=== PATIENT | female | born 1975 | race Caucasian/White ===

== ENCOUNTER → 2020-04-03 14:09 | Outpatient (CLI) | payer OTHER, SELFPAY ==
--- NOTE | ~2020-04-03 | MM_ITS ---
EXAMINATION: MM screening [facility] BI w elvira HISTORY: Screening mammogram TECHNIQUE: Craniocaudal and mediolateral oblique 3-D tomosynthesis images were obtained and synthetic 2-D images were generated. CAD analysis was submitted and interpreted. COMPARISON: 02/17/2017, 02/03/2017, 09/30/2015 BREAST PARENCHYMAL COMPOSITION: There are scattered areas of fibroglandular density. FINDINGS: There is no evidence of suspicious mass, calcification, or architectural distortion to sugg est malignancy in either breast. There has been no suspicious interval change. IMPRESSION: 1. No mammographic evidence of malignancy. 2. Recommend routine screening mammography in one year. BI-RADS Category 1: Negative Reviewed, dictated and finalized at location A. O COUNTER MOLDER
== END ==
PROVIDERS: Visit Provider Obstetrics & Gynecology
DX: Z12.31 Encounter for screening mammogram for malignant neoplasm of breast (principal)
CPT/HCPCS: 77063; 77067

== ENCOUNTER 2020-12-13 17:18 | Emergency (ER) | payer BC, OTHER, SELFPAY ==
[2020-12-13 17:53] VITALS: BP 135/88; PULSE 75; RESP 16; TEMP 36.7; O2SAT 97
--- NOTE | 2020-12-13 17:59 | ED.FEMALEGU ---
HPI - Female Genitourinary General Chief complaint: Urogenital-Female Stated complaint: UTI Source: patient and RN notes reviewed Limitations: no limitations History of Present Illness HPI Narrative: The overweight patient, on several meds for asthma, presents with urinary symptoms. Patient states she has about a week long history of worsening urinary frequency, urgency which she had first thought was associated with recent bladder prolapse and pessary treatment. Symptoms are mild, most most noticeable with micturition, associate with mild left low back pain; no fever, vomiting/diarrhea, hematuria, vaginal bleeding-as she recently completed her menses cycle. Related Data Allergies Allergy/AdvReac Type Severity Reaction Status Date / Time No Known Allergies Allergy Verified 12/13/20 17:45 Review of Systems Review of Systems: General/Constitutional: No weight loss,fever Eyes: N0: Redness,discharge Ears/Nose/Throat: No: Epistaxis,ear discharge Respiratory: Denies: Hemoptysis Gastrointestinal: No Vomiting, Bleeding-rectal Skin: No Lumps, eruption Neurologic: No Focal Weakness,Sz Hematologic: Denies: Petechiae/Purpura Psychiatric: No: Suicida ideationl All Other Systems: Reviewed and Negative [facility], [facility] Past Medical History Medical History x2 Allergic asthma Anemia Eosinophilic esophagitis Kidney stones Migraines Missed x2 Vaginal delivery x 3 Surgical History Surgical History History of endoscopy History of laparoscopy Family History Family History Father Hypertension Mother Hypertension Social History Social History Social History: Smoking status: Former smoker Tobacco type: cigarettes Second hand tobacco smoke exposure: No Smoking end date: 04/18/02 Alcohol intake: current Drinks per week: 1 Substance use: never Substance use type: does not use Gender identity (if verbalized by the patient): Female Sexual Orientation (if Verbalized by the Patient): Straight or Heterosexual Comments At time of signature, agree with nursing past medical, surgical, social and family history. There is no relevant family history pertinent to the presenting complaint Exam Narrative: General Appearance: Well appearing, , Conjunctiva clear Mouth/Throat: Normal appearing, Normal lips,: Supple Respiratory: Airway patent, No respiratory distress Abdomen: Soft, Non-tender, Musculoskeletal: Full ROM Skin: Warm, Dry Neurological: A&O x3, Normal affect Course Vital Signs Vital signs: Vital Signs Temperature 98.1 F 12/13/20 17:53 Pulse Rate 75 12/13/20 17:53 Respiratory Rate 16 12/13/20 17:53 Blood Pressure 135/88 12/13/20 17:53 Pulse Oximetry 97 12/13/20 17:53 Temperature 98.1 F 12/13/20 17:53 Pulse Rate 75 12/13/20 17:53 Respiratory Rate 16 12/13/20 17:53 Blood Pressure 135/88 12/13/20 17:53 Pulse Oximetry 97 12/13/20 17:53 MDM - Female Genitourinary Lab Data Labs: Urine Glucose Negative Reference Range: Negative Urine Bilirubin Negative Reference Range: Negative Urine Ketone Trace Reference Range: Negative Urine Specific [place] 1.020 Reference Range:1.001-1.035 Urine Blood 2+ Reference Range: Negative * * Urine pH 6.5
== END 2020-12-13 18:18 | disposition home or self-care (01) ==
PROVIDERS: Emergency Provider Emergency Medicine; PCP Family Medicine
DX: N30.00 Acute cystitis without hematuria (principal); Z87.891 Personal history of nicotine dependence
CPT/HCPCS: 81003; 87077; 87086; 87088; 87186; 99213; G0463

== ENCOUNTER 2021-08-31 07:52 | Outpatient (CLI) | payer BC, SELFPAY ==
[2021-08-31 08:34] LABS: Basophils Absolute Auto 0.2 K/mm3 (0.0-0.1); Basophils Percent Auto 1.4 % (0.2-1.2); Eosinophils Absolute Auto 0.8 K/mm3 (0-0.3); Hematocrit 38.9 % (37.0-47.0); Hemoglobin 12.9 g/dL (12.0-15.0); Immature Granulocyte Absolute 0.05 K/mm3 (0.00-0.031); Immature Granulocyte Percent A 0.4 % (0-0.5); Lymphocytes Absolute Auto 4.13 K/mm3 (0.9-3.2); Lymphocytes Percent Auto 36.6 % (18.3-44.2); Mean Corpuscular HGB Conc 33.2 g/dl (32-36); Mean Corpuscular Hemoglobin 32.7 pg (26-34); Mean Corpuscular Volume 98.5 fl (80-100); Mean Platelet Volume 10.1 fl (7.4-10.4); Monocytes Absolute Auto 0.6 K/mm3 (0.1-0.6); Monocytes Percent Auto 5.5 % (2.6-8.5); Neutrophils Absolute Auto 5.5 K/mm3 (1.3-6.7); Neutrophils Percent Auto 49.1 % (45.5-73.1); Platelet Count Result 323 k/mm3 (150-375); Red Blood Count 3.95 M/mm3 (4.2-5.4); Red Cell Distribution Width 12.6 % (11.5-14.5); White Blood Count 11.3 K/mm3 (4.5-10.0)
[2021-08-31 08:36] LABS: Alanine Aminotransferase 14 U/L (6-35); Albumin Level 4.3 g/dL (3.5-5.1); Alkaline Phosphatase 88 U/L (38-126); Anion Gap 4 mmol/L (8-16); Aspartate Amino Transferase 23 U/L (14-36); Bilirubin,Total 0.4 mg/dL (0.2-1.3); Blood Urea Nitrogen 12 mg/dL (7-17); Calcium 9.4 mg/dL (8.4-10.2); Carbon Dioxide 29 mmol/L (22-30); Chloride 103 mmol/L (98-107); Cholesterol 199 mg/dL (0-200); Estimated Glomerular Filt Rate > 60; Glucose 102 mg/dL (65-110); HDL Direct 53 mg/dL; Potassium 4.9 mmol/L (3.4-5.0); Sodium 136 mmol/L (137-145); Triglycerides 71 mg/dL (<150)
[2021-08-31 08:48] LABS: LDL Cholesterol Direct 104 mg/dL
[2021-09-03 14:30] LABS: Vitamin D 1,25 (OH)2 Total 32 pg/mL (18-72); Vitamin D2 1,25 (OH)2 <8 pg/mL; Vitamin D3 1,25 (OH)2 32 pg/mL
== END 2021-08-31 07:53 | disposition home or self-care (01) ==
LOC: ANHLAB 07:55
PROVIDERS: PCP Family Medicine; Visit Provider Nurse Practitioner Gerontology
DX: D72.829 Elevated white blood cell count, unspecified (principal); E55.9 Vitamin D deficiency, unspecified; J45.20 Mild intermittent asthma, uncomplicated
CPT/HCPCS: 36415; 80053; 80061; 82652; 85025

== ENCOUNTER 2021-12-26 11:42 | Emergency (ER) | payer BC, SELFPAY ==
--- NOTE | ~2021-12-26 | XR_ITS ---
XR foot LT min 3V DATE: 12/26/2021 12:14 INDICATION: Dropped cement block on first through third toes. Pain. TECHNIQUE: 4 views COMPARISON: 01/13/2016 left foot FINDINGS: Hallux valgus and bunion deformity. Mild osteoarthritis at the first metatarsophalangeal maria d int. Old healed second metatarsal distal shaft fracture. There is a transverse nondisplaced fracture at the junction of the distal shaft and base of the tuft of the distal phalanx of the great toe. No other fracture or dislocation, periosteal reaction or bone destruction. Prominent plantar and mild posterior calcaneal enthesopathy. IMPRESSION: Nondisplaced fracture of distal phalanx of first digit Reviewed, dictated and finalized at location A.
[2021-12-26 11:51] VITALS: BP 149/92; PULSE 88; RESP 16; TEMP 36.6; O2SAT 99
--- NOTE | 2021-12-26 12:52 | ED.LOWEXIN ---
HPI - Extremity Injury (Lower) General Chief Complaint: Extremity Injury, Lower Stated Complaint: Lt Foot Pain Time Seen by Provider: 12/26/21 12:52 History of Present Illness HPI Narrative: Cherise Painting is a 48 yo female with a PMH of asthma comes here after dropping a brick on her right foot and having pain in her toes and great toe. She is able to walk on the foot is not particularly swollen she is able to move her toes but does have pain with pressure Related Data Allergies Allergy/AdvReac Type Severity Reaction Status Date / Time No Known Allergies Allergy Verified 12/26/21 12:21 Review of Systems Review of Systems: CONSTITUTIONAL: Denies fever, chills, sweats. EYES: Denies visual changes, redness, discharge. ENT: Denies rhinorrhea, congestion, sore throat, otalgia. CARDIOVASCULAR: Denies chest pain, palpitations, edema. RESPIRATORY: Denies dyspnea, wheezing, cough GASTROINTESTINAL: Denies abdominal pain, nausea, vomiting, diarrhea. GENITOURINARY: Denies dysuria, hematuria, abnormal discharge SKIN: Denies rash or itching. NEUROLOGIC: Denies numbness, or focal weakness. PSYCHIATRIC: Denies anxiety or depression. Right great toe injury from dropping cement stone on foot PMFSH Past Medical History Medical History x2 Allergic asthma Anemia Eosinophilic esophagitis Kidney stones Migraines Missed x2 Vaginal delivery x 3 Surgical History Surgical History History of endoscopy History of laparoscopy Family History Family History Father Hypertension Mother Hypertension Social History Social History Social History: Smoking status: Former smoker Tobacco type: cigarettes Second hand tobacco smoke exposure: No Smoking end date: 04/18/02 Alcohol intake: current Drinks per week: 1 Substance use: never Substance use type: does not use Gender identity (if verbalized by the patient): Female Sexual Orientation (if Verbalized by the Patient): Straight or Heterosexual Exam Narrative: GENERAL: This is a well-nourished, well-developed patient, in mild distress. HEAD: normocephalic, atraumatic. EYES: PERRL. Sclera clear/white. Vision is grossly intact. EARS: External ears normal, Hearing grossly intact. NOSE: External nose normal without nasal discharge, nares without redness, no rhinorrhea. THROAT: Mucous membranes moist, NECK: Neck supple, non-tender CARDIOVASCULAR: Regular rate and rhythm without murmurs, gallops, or rubs. RESPIRATORY: Clear to auscultation. Breath sounds equal bilaterally. No wheezes, rales, or rhonchi. GASTROINTESTINAL: Not done SKIN: warm, intact with no suspicious lesions or rash, good texture and turgor. NEURO: awake, alert, and oriented to person, place and time. There were no obvious focal neurologic abnormalities. Steady gait EXTREMITIES: Normal range of motion. Right great toe pain with walking is able to move all toes 2+ pedal pulse no discoloration minimal swelling BACK: Nontender without deformity Course Course Emergency Course: Patient here after dropping a brick on right foot on toes 1 through 3 X-ray shows a hallux fell valgus and bunion deformity of the right foot mild osteoarthritis at first metatarsophalangeal joint old healed second metatarsal shaft fracture there is a transverse nondisplaced fracture at the junction of the shaft and base of the tuft of distal phalanx of the right toe Sent to [facility] to get boot so patoient can walk on foot. Tylenol 3 for pain, Follow up with orthopedics Level of Care: Express Care Visit Vital Signs Vital signs: Vital Signs Temperature 97.9 F 12/26/21 11:51 Pulse Rate 88 12/26/21 11:51 Respiratory Rate 16 12/26/21 11:51 Blood Pressure 149/
== END 2021-12-26 13:02 | disposition home or self-care (01) ==
PROVIDERS: Emergency Provider Nurse Practitioner; PCP Family Medicine
DX: S92.424A Nondisplaced fracture of distal phalanx of right great toe, initial encounter for closed fracture (principal); W20.8XXA Other cause of strike by thrown, projected or falling object, initial encounter; K20.0 Eosinophilic esophagitis; J45.909 Unspecified asthma, uncomplicated; Z87.891 Personal history of nicotine dependence
CPT/HCPCS: 73630; 99213; G0463

== ENCOUNTER → 2022-11-10 13:49 | Outpatient (CLI) | payer BC, SELFPAY ==
--- NOTE | ~2022-11-10 | MM_ITS ---
EXAMINATION: MM screening [facility] BI w elvira HISTORY: Screening mammogram, family history of breast cancer in her mother. TECHNIQUE: Craniocaudal and mediolateral oblique 3-D tomosynthesis images were obtained and synthetic 2-D images were generated. CAD analysis was submitted and interpreted. COMPARISON: 04/03/2020, 02/17/2017, 01/24/2017 BREAST PARENCHYMAL COMPOSITION: There are scattered areas of fibroglandular density. FINDINGS: No suspicious mass, calcification, or architectural distortion are identified in either viri ast to suggest malignancy. There has been no suspicious interval change. IMPRESSION: 1. No mammographic evidence of malignancy. 2. Recommend routine screening mammography in one year. BI-RADS Category 1: Negative Reviewed, dictated and finalized at location A.
== END ==
PROVIDERS: PCP Nurse Practitioner Gerontology; Visit Provider Nurse Practitioner Gerontology
DX: Z12.31 Encounter for screening mammogram for malignant neoplasm of breast (principal)
CPT/HCPCS: 77063; 77067

== ENCOUNTER 2023-04-07 09:35 | Outpatient (CLI) | payer BC, SELFPAY ==
--- NOTE | ~2023-04-07 | NM_ITS ---
EXAMINATION: NM macy stress w perfusion DATE: 04/07/2023 13:42 INDICATION: Left bundle branch block TECHNIQUE: Rest images were obtained following intravenous administration of 8.9 mCi Tc99m tetrofosmi n (Myoview). The patient was infused intravenously with Lexiscan (Regadenoson). Then, a 7.8 mCi Tc99m tetrofosmin (Myoview) was administered intravenously, and stress images were obtained. Data was jeronimo nstructed into short axis and horizontal and vertical long axis SPECT images. Gated SPECT images were also obtained. COMPARISON: None. FINDINGS: Nonreversible mild perfusion defect consistent with infarct involving the mid posterior sep bonny, anteroseptal and anterior segments. Mild reversible perfusion defects involving the apical infer ior, apical septal, apical anterior and basilar anterior segments. There is normal left ventricular chamber size. There is paradoxical septal motion. Otherwise normal left ventricular wall motion. Norm al left ventricular ejection fraction measuring 58%. IMPRESSION: 1. Large region of mild reversible and nonreversible perfusion defect consistent with combination of infarct and ischemia involving portions of both the left anterior descending and right coronary arter y vascular distributions. 2. Paradoxical septal motion likely related to reported left bundle branch block. 3. Left ventricular ejection fraction measuring 58%. Reviewed, dictated and finalized at location A. ER ASSOCIATE IMPRESSION: 1. Large region of mild reversible and nonreversible perfusion defect consisten t with combination of infarct and ischemia involving portions of both the left anterior descending and right coronary artery vascular distributions. 2. Paradoxical septal motion likely related to reported left bundle branch bloc k. 3. Left ventricular ejection fraction measuring 58%.
--- NOTE | 2023-04-07 09:59 | ECHO_ITS ---
Patient Info Name: Cherise Painting Age: 48 years : 1975 Gender: Female Ht: 63 in Wt: 179 lbs BSA: 1.93 m2 HR: 71 bpm BP: 122 / 80 mmHg Heart Rhythm: Left Bundle Branch Block Technical Quality: Fair Exam Date: 04/07/2023 10:04 AM Exam Location: Echo Lab Patient Status: Outpatient Admit Date: 04/07/2023 Staff Ordering Physician: Junior Gregg DO Attending Provider: Junior Gregg DO Referring Physician: Cristino ROBIN; Exam Type: CA echo doppler color flow Study Info Indications I44.7 - Left bundle-branch block, unspecified R06.09 - Other forms of dyspnea Complete two-dimensional, color flow and Doppler transthoracic echocardiogram is performed. Summary 1. Complete two-dimensional, color flow and Doppler transthoracic echocardiogram is performed. 2. Left ventricular chamber dimension is mildly enlarged. 3. Left ventricular systolic function is mildly globally reduced, estimated at 45-50%. 4. Left ventricular septal wall motion is abnormal with septal motion related to bundle branch block. 5. The left ventricular diastolic function is abnormal. 6. E/e' 11 is mildly elevated. 7. Left atrial chamber dimension is moderately enlarged. 8. There is mild mitral valve regurgitation. Left Ventricle E/e' 11 is mildly elevated. Left ventricular chamber dimension is mildly enlarged. Left ventricular systolic function is mildly globally reduced, estimated at 45-50%. Left ventricular septal wall motion is abnormal with septal motion related to bundle branch block. The left ventricular diastolic function is abnormal. Right Ventricle Right ventricular systolic function is normal and with normal TAPSE 2.0 cm. Right ventricular chamber dimension is normal. Left Atria Left atrial chamber dimension is moderately enlarged. Right Atria Right atrial chamber dimension is normal. Aortic Valve The aortic valve is trileaflet. There is no aortic valve stenosis. There is no aortic valve regurgitation. Pulmonic Valve There is no pulmonic regurgitation. Mitral Valve There is no mitral valve stenosis. There is mild mitral valve regurgitation. Tricuspid Valve There is no tricuspid valve regurgitation. Pericardium/Pleural There is no pericardial effusion. Inferior Vena Cava Normal inferior vena cava with >50% collapse upon inspiration consistent with normal right atrial pressure, 5 mmHg. Aorta The aortic root size at the sinus of Valsalva is normal. Left Ventricular Outflow Tract Name Value Normal LVOT 2D LVOT Diameter 2.1 cm LVOT Doppler LVOT Peak Gradient 4 mmHg LVOT Mean Gradient 2 mmHg LVOT VTI 18 cm LVOT VTI/AV VTI Ratio 0.5 LVOT Stroke Volume 62 ml LVOT CO 4.2 l/min LVOT CI 2.2 l/min/m2 Pulmonic Valve Name Value Normal PV Doppler
--- NOTE | 2023-04-07 10:28 | EST_ITS ---
Patient Info Name: Cherise Painting Age: 48 years : 1975 Gender: Female Ht: 63 in Wt: 180 lbs BSA: 1.94 m2 HR: 68 bpm BP: 148 / 87 mmHg Heart Rhythm: Left Bundle Branch Block Exam Date: 04/07/2023 11:45 AM Exam Location: Echo Lab Patient Status: Outpatient Admit Date: 04/07/2023 Staff Ordering Physician: Junior Gregg DO Attending Provider: Junior Gregg DO Exercise Technologist: Sabine Mccarthy CT Exercise Physician: Junior Gregg DO Exam Type: CA stress macy w NM Study Info Indications I44.7 - Left bundle-branch block, unspecified R06.09 - Other forms of dyspnea A regadenoson stress test was performed. Summary 1. 1. Inconclusive lexiscan stress test for ischemic ST changes by ECG criteria due to baseline LBBB. 2. 2. Baseline hypertension. 3. 3. Nuclear scan to follow and will be reported separately. Please correlate with it. 4. 4. Patient informed of the above results. Protocol: Lexiscan Stress ECG Details Stage: REST Duration (min): 21 min : 19 sec HR (bpm): 77 SBP (mmHg): 148 DBP (mmHg): 87 Stage: REST Duration (min): 21 min : 48 sec HR (bpm): 71 SBP (mmHg): 148 DBP (mmHg): 87 Stage: STAGE 1 Duration (min): 1 min : 0 sec HR (bpm): 107 SBP (mmHg): 122 DBP (mmHg): 85 Stage: RECOVERY Duration (min): 1 min : 0 sec HR (bpm): 105 SBP (mmHg): 122 DBP (mmHg): 85 Stage: RECOVERY Duration (min): 2 min : 0 sec HR (bpm): 100 SBP (mmHg): 122 DBP (mmHg): 85 Stage: RECOVERY Duration (min): 2 min : 56 sec HR (bpm): 93 SBP (mmHg): 142 DBP (mmHg): 83 Rest HR: 71 bpm Peak HR: 107 bpm Rest Sys BP: 148 mmHg Peak Sys BP: 142 mmHg Max Pred HR: 172 bpm % Max Pred HR: 62 % Target HR: 146 bpm Max RPP: 15,194 bpm*mmHg Termination Reason: Completed protocol Cardiac Symptoms: Shortness of breath Total Time: 1 min : 0 sec Rest [place] BP: 87 mmHg Peak [place] BP: 83 mmHg Total Dose: 0.4 mg Resting ECG Sinus rhythm, LBBB. Stress ECG No ST changes. Arrhythmias None. Report Signatures
== END 2023-04-07 09:36 | disposition home or self-care (01) ==
LOC: ANHCARD 09:36
PROVIDERS: PCP Family Medicine; Visit Provider Internal Medicine Cardiovascular Disease
DX: I44.7 Left bundle-branch block, unspecified (principal); R06.09 Other forms of dyspnea; I34.0 Nonrheumatic mitral (valve) insufficiency
CPT/HCPCS: 78452; 93017; 93306; A9502; J2785

== ENCOUNTER 2023-05-02 11:53 | Emergency (ER) | payer BC, SELFPAY ==
--- NOTE | ~2023-05-02 | XR_ITS ---
XR foot RT 2V DATE: 05/02/2023 12:36 INDICATION: Right plantar foot/heel pain. Possible foreign body. TECHNIQUE: 3 views COMPARISON: None FINDINGS: There is a very thin approximately 4 mm long radiopaque foreign body within the subcutaneou s tissues of the heel of the right foot near the indicated entry wound. There is plantar calcaneal enthesopathy, distal Achilles tendon mild calcification. There is hallux valgus and bunion deformity. There is mild osteoarthritis at the first metatarsophala ngeal joint. No fracture, dislocation, periosteal reaction or bone destruction. IMPRESSION: Very thin 4 mm long radiopaque linear foreign body within the subcutaneous tissues of the heel of the foot Reviewed, dictated and finalized at location B. ALT TAR AND GRAVEL ROOFER IMPRESSION: Very thin 4 mm long radiopaque linear foreign body within the subcu taneous tissues of the heel of the foot
[2023-05-02 12:05] VITALS: BP 113/76; PULSE 65; RESP 18; TEMP 36.4; O2SAT 100
--- NOTE | 2023-05-02 12:23 | ED.LOWEXIN ---
HPI - Extremity Injury (Lower) General Chief Complaint: Extremity Injury, Lower Stated Complaint: bottom rt foot pain Source: patient Mode of arrival: ambulatory Limitations: no limitations History of Present Illness HPI Narrative: 48-year-old female presented for complaint of pain to the bottom of the right foot near the heel. Onset yesterday. She states she may have stepped on a sewing needle at home. Endorses mild swelling and a small black dot. She denies any other complaints or concerns. No treatment prior to arrival. Related Data Home Medications Medication Instructions Recorded Confirmed albuterol sulfate 90 mcg/actuation inhalation 05/02/23 05/02/23 aerosol inhaler (Ventolin HFA) aspirin 81 mg chewable tablet 05/02/23 budesonide-formoterol HFA 160 inhalation 05/02/23 mcg-4.5 mcg/actuation aerosol inhaler (Symbicort) Allergies Allergy/AdvReac Type Severity Reaction Status Date / Time iodine Allergy Anaphylaxis Verified 05/02/23 12:09 Review of Systems Review of Systems: CONSTITUTIONAL: Denies body aches, fever, chills CARDIOVASCULAR: Denies chest pain, palpitations, or edema. RESPIRATORY: Denies cough or dyspnea. SKIN: Reports possible FB foot Denies rash, itching MUSCULOSKELETAL: Denies back pain, joint pain, or myalgia. NEUROLOGIC: Denies headache, numbness, tingling, or weakness. All systems reviewed & are unremarkable except as noted in HPI and below PMFSH Past Medical History Medical History x2 Allergic asthma Anemia Eosinophilic esophagitis Kidney stones Migraines Missed x2 Vaginal delivery x 3 Surgical History Surgical History History of endoscopy History of laparoscopy Family History Family History Father Hypertension Mother Hypertension Social History Social History Social History: Smoking status: Former smoker Tobacco type: cigarettes Second hand tobacco smoke exposure: No Smoking end date: 04/18/02 Alcohol intake: current Drinks per week: 1 Substance use: never Substance use type: does not use Lack of Transportation: No Lack of Food: Never True Current Housing: I Have Housing Concerned About Future Housing: No Difficulty Paying Gas/Electric Bills: No Difficulty Paying for Meds: No Currently Unemployed: No Education: Bachelor's Degree Difficulty w/ Childcare or Family Care: No Living arrangements: with family Occupation/Education: occupation Gender identity (if verbalized by the patient): Female Sexual Orientation (if Verbalized by the Patient): Straight or Heterosexual Comments At time of signature, I have reviewed and agree with nursing past medical, surgical, social and family history unless otherwise noted. Please see nursing chart for further information. There is no relevant family history pertinent to the presenting complaint Exam Narrative: GENERAL: Well-appearing CHEST: Speaks in full sentences. No respiratory distress. HEART: Regular rate and rhythm. Normal and equal peripheral pulses. EXTREMITIES: Right foot has normal strength and sensation, normal range of motion. Point tenderness to 3mm diameter black discoloration medial/plantar heel area, mild swelling. No open wounds, or obvious deformity; alignment normal, pulse palpable and equal bilaterally, skin warm, dry, pink. Capillary refill less than 3 seconds. SKIN: Warm, dry NEURO: Alert and oriented x3. PSYCH: Normal mood and affect Extrem: Ankle/foot/toe images: 1. area of soft tissue foreign body Course Course Emergency Course: Patient is aware of diagnosis, understands and agrees to treatment plan. Anticipatory guidance given. Patient agrees to follow-up as directed and is
== END 2023-05-02 13:31 | disposition home or self-care (01) ==
PROVIDERS: Emergency Provider Nurse Practitioner Family; PCP Family Medicine
DX: M79.5 Residual foreign body in soft tissue (principal); Z87.891 Personal history of nicotine dependence
CPT/HCPCS: 10120; 73620; 99213; G0463

== ENCOUNTER 2024-02-21 14:28 | Outpatient (CLI) | payer BC, SELFPAY ==
--- NOTE | 2024-02-21 14:42 | ECHO_ITS ---
Patient Info Name: Cherise Painting Age: 48 years : 1975 Gender: Female Ht: 63 in Wt: 180 lbs BSA: 1.94 m2 HR: 60 bpm BP: 123 / 91 mmHg Technical Quality: Good Exam Date: 02/21/2024 2:50 PM Exam Location: Echo Lab Patient Status: Outpatient Admit Date: 02/21/2024 Staff Ordering Physician: Juinor Gregg DO Hot Patcher: Keyonna Ramirez RDCS Attending Provider: Junior Gregg DO Referring Physician: Cristino ROBIN; Exam Type: CA echo doppler color flow Study Info Indications I51.9 - Heart disease, unspecified Complete two-dimensional, color flow and Doppler transthoracic echocardiogram is performed. Strain analysis performed. Summary 1. Complete two-dimensional, color flow and Doppler transthoracic echocardiogram is performed. 2. Left ventricular chamber dimension is mildly enlarged. 3. Left ventricular systolic function is preserved estimated at 50-55%. 4. Left ventricular septal wall motion is abnormal with septal motion related to bundle branch block. 5. The left ventricular diastolic function is abnormal. 6. E/e' 11 is mildly elevated. 7. Global longitudinal strain is normal at -18.0%. 8. Left atrial chamber dimension is mildly enlarged. 9. There is trace mitral valve regurgitation. 10. No pulmonary hypertension, estimated pulmonary arterial systolic pressure is 20 mmHg. Left Ventricle E/e' 11 is mildly elevated. Global longitudinal strain is normal at -18.0%. Left ventricular systolic function is preserved estimated at 50-55%. Left ventricular chamber dimension is mildly enlarged. Left ventricular septal wall motion is abnormal with septal motion related to bundle branch block. The left ventricular diastolic function is abnormal. Right Ventricle Right ventricular chamber dimension is normal. Right ventricular systolic function is normal. Left Atria Left atrial chamber dimension is mildly enlarged. Right Atria Right atrial chamber dimension is normal. Aortic Valve The aortic valve is trileaflet. There is no aortic valve stenosis. There is no aortic valve regurgitation. Pulmonic Valve There is no pulmonic regurgitation. Mitral Valve There is no mitral valve stenosis. There is trace mitral valve regurgitation. Tricuspid Valve There is no tricuspid valve regurgitation. No pulmonary hypertension, estimated pulmonary arterial systolic pressure is 20 mmHg. Pericardium/Pleural There is no pericardial effusion. Inferior Vena Cava Normal inferior vena cava with >50% collapse upon inspiration consistent with normal right atrial pressure, 5 mmHg. Aorta The aortic root size at the sinus of Valsalva is normal. Left Ventricular Outflow Tract Name Value Normal LVOT 2D LVOT Diameter 2.0 cm LVOT Doppler LVOT Peak Gradient 6 mmHg LVOT Mean Gradient 4 mmHg LVOT VTI 27 cm LVOT VTI/AV VTI Ratio 1.0 LVOT Stroke Volume 83 ml LVOT CO 4.4 l/min LVOT CI 2.3 l/min/m2 Pulmonic Valve Name Value Normal RVOT Doppler RVOT Peak Gradient 3 mmHg PV Doppler PV Peak Gradient 3 mmHg Mitral Valve Name Value Normal MV Doppler MV Decel [place] 478 cm/s2 MV PHT 56 ms MV Area (PHT) 3.9 cm2 4.0-5.0 MV Diastolic Function MV E Peak Velocity 93 cm/s MV A Peak Velocity 70 cm/s MV E/A 1.3 MV Decel Time 194 ms Tricuspid Valve Name Value Normal TV Regurgitation Doppler TR Peak Velocity 193 cm/s TR Peak Gradient 15 mmHg Estimated PAP/RSVP RA Pressure 5 mmHg <=5 PA Systolic Pressure 20 mmHg <36 RV Systolic Pressure 20 mmHg <36 Aorta Name Value Normal Ascending Aorta Ao Root Diameter (MM) 3.2 cm Ao Root Diam Index (MM) 1.7 cm/m2 Aortic Valve Name Value Normal AV Doppler AV Peak Velocity 137 cm/s AV Peak Gradient 8 mmHg AV Mean Gradient 5 mmHg AV VTI 27 cm AV Area (Cont Eq VTI) 3.1 cm2 >=3.0 AV Area (Cont Eq Harsh) 2.8 cm2 AV Regurgitation 2D LVOT Area 3.1 cm2 Ventricles Name Value Normal LV Dimensions 2D/MM IVS Diastolic Thickness (2D) 1.1 cm 0.6-1.0 IVS Diastole Thickness (MM) 1.1 cm 0.6-0.9 LVID Diastole (2D) 5.0 cm 3.8-5.2 LVID Diastole (MM) 5.6 cm 3.8-5.2 LVIW Diastolic Thickness (2D) 1.0 cm 0.6-0.9 LVIW Diastolic Thickness (MM) 0.8 cm 0.6-0.9 LVID Systole (2D) 3.6 cm 2.2-3.5 LVID Systole (MM) 4.1 cm 2.2-3.5 LVOT Diameter 2.0 cm LV Mass (2D Cubed) 193.27 g 67.00-162.00 LV Mass Index (2D Cubed) 100 g/m2 43-95 Relative Wall Thickness (2D) 0.41 LV Mass (MM Cubed) 211.63 g 67.00-162.00 LV Mass Index (MM Cubed) 109 g/m2 43-95 Relative Wall Thickness (MM) 0.29 LV Fractional Shortening/Ejection Fraction 2D/MM LV Fractional Shortening (2D) 28 % 27-45 LV Fractional Shortening (MM) 27 % 27-45 LV EF (MM Teicholz) 51 % 54-74 LV EF (2D Teicholz) 54 % 54-74 LV Diastolic Volume (4C MOD) 75 ml LV EF (4C MOD) 54 % LV Diastolic Volume (2C MOD) 82 ml LV EF (2C MOD) 60 % LV Diastolic Volume (BP MOD) 78 ml 46-106 LV Diastolic Volume Index (BP MOD) 40 ml/m2 29-61 LV Systolic Volume (BP MOD) 34 ml 14-42 LV Systolic Volume Index (BP MOD) 18 ml/m2 8-24 LV EF (BP MOD) 56 % 54-74 LV Diastolic Length (4C) 8.1 cm LV Systolic Length (4C) 6.7 cm LV Stroke Volume (4C MOD) 41 ml Atria Name Value Normal LA Dimensions LA Dimension (MM) 3.3 cm 2.7-3.8 LA Volume (4C A-L) 43 ml LA Volume (BP A-L) 47 ml RA Dimensions RA Area (4C) 12.7 cm2 <=18.0 EchoPAC Name Value Normal AutoEF LVCO_BiP_Q (Tbhq6IID) 3.2 l/min LVEF_BiP_Q (Ykvt2YPQ) 58 % LVSV_BiP_Q (Idaq8HDU) 62 ml LVVED_BiP_Q (Spvq7LTT) 107 ml LVVES_BiP_Q (Dlva7HHI) 45 ml HR_4Ch_Q (Mmms3HYC) 49 bpm LVCO_4Ch_Q (Gaso4FVX) 3.1 l/min LVEF_4Ch_Q (Bfic0TJB) 62 % LVLd_4Ch_Q (Rgzq3MRP) 7.7 cm LVLs_4Ch_Q (Mqgf6VVC) 6.7 cm LVSV_4Ch_Q (Yhua1DPH) 62 ml LVVED_4Ch_Q (Ubgl8VKF) 101 ml LVVES_4Ch_Q (Mwiw5GYG) 39 ml HR_2Ch_Q (Rvpb1QVL) 52 bpm LVCO_2Ch_Q (Hzrq7FXN) 3.3 l/min LVEF_2Ch_Q (Bztp0LAM) 55 % LVLd_2Ch_Q (Qzbv1QGA) 8.3 cm LVLs_2Ch_Q (Fedr3RRG) 6.8 cm LVSV_2Ch_Q (Gjaw5FCP) 63 ml LVVED_2Ch_Q (Hsrx6HHC) 116 ml LVVES_2Ch_Q (Gixg3LNQ) 53 ml DORIS AA peak sys SL (AWMA) 23.6 % AAS peak sys SL (AWMA) 23.3 % AI peak sys SL (AWMA) 23.3 % AL peak sys SL (AWMA) 20.5 % AP peak sys SL (AWMA) 25.0 % peak sys SL (AWMA) 21.7 % AVC (AWMA) 419 ms BA peak sys SL (AWMA) 10.8 % BAS peak sys SL (AWMA) 13.0 % BI peak sys SL (AWMA) 15.0 % BL peak sys SL (AWMA) 33.5 % BP peak sys SL (AWMA) 18.0 % BS peak sys SL (AWMA) 10.2 % G peak SL(A2C) (AWMA) 16.5 % G peak SL(A4C) (AWMA) 19.4 % G peak SL(APLAX) (AWMA) 18.2 % G peak SL(Avg) (AWMA) 18.1 % MA peak sys SL (AWMA) 14.2 % MAS peak sys SL (AWMA) 11.6 % AL peak sys SL (AWMA) 16.8 % ML peak sys SL (AWMA) 22.1 % MP peak sys SL (AWMA) 23.2 % MS peak sys SL (AWMA) 15.9 % Report Signatures
== END 2024-02-21 14:29 | disposition home or self-care (01) ==
PROVIDERS: PCP Family Medicine; Visit Provider Internal Medicine Cardiovascular Disease
DX: I51.9 Heart disease, unspecified (principal)
CPT/HCPCS: 93306

== ENCOUNTER 2024-04-02 00:52 | Day surgery (SDC) | payer BC, SELFPAY ==
[2024-03-20 14:54] VITALS: BMI 31.2
[2024-04-02 10:58] VITALS: BP 115/85; PULSE 76; RESP 18; TEMP 35.6; O2SAT 100; BMI 31.4
[2024-04-02] MEDS: LACTATED RINGERS 1,000 ML 150 ML IV CONT (11:05)
[2024-04-02 11:08] LABS: BEDSIDEPREGUCG Negative (Negative)
--- NOTE | 2024-04-02 11:14 | P.PNAN_ITS ---
Anes - Initial Pre Proc Eval Procedure: Operation Date: 04/02/24 14:30 Proposed Procedures p Esophagogastroduodenoscopy & Colonoscopy - James Corona MD Date/Time: 04/02/24 11:14 Surgeon: James Corona MD Pre Op Diagnosis: eosinophilic esophagitis, dysphagia, fecal abn Patient Data Age: 49 Gender: F Height: 1.6 m Weight: 80.4 kg Last Vital Signs Temp 35.6 C L 04/02/24 10:58 Pulse 76 04/02/24 10:58 Resp 18 04/02/24 10:58 BP 115/85 04/02/24 10:58 Pulse Ox 100 04/02/24 10:58 O2 Del Method Room Air 04/02/24 10:58 Allergies Allergy/AdvReac Type Severity Reaction Status Date / Time iodine Allergy Anaphylaxis Verified 04/02/24 10:56 Home Medications ?Medication ?Instructions ?Recorded ?Confirmed ?Type imiquimod 5 % topical cream packet 1 applic topical 3XW 12 weeks #12 10/11/23 04/02/24 Rx ea metoprolol succinate 25 mg See Rx Instructions .Route 01/06/24 04/02/24 Rx tablet,extended release 24 hr .COMPLEX #45 tabs albuterol sulfate 90 mcg/actuation 1 puff inhalation Q4H PRN 01/13/24 03/20/24 Rx aerosol inhaler (Ventolin HFA) shortness of breath or wheezing #8.5 grams budesonide-formoterol HFA 160 1 puff inhalation DAILY #10.2 grams 01/13/24 04/02/24 Rx mcg-4.5 mcg/actuation aerosol inhaler (Symbicort) ergocalciferol (vitamin D2) 1,250 See Rx Instructions .Route 02/27/24 04/02/24 Rx mcg (50,000 unit) capsule .COMPLEX #12 caps phentermine 37.5 mg tablet 37.5 mg PO DAILY #30 tabs 03/01/24 04/02/24 Rx Laboratory Tests 04/02/24 11:06 POC Urine HCG, Qual Negative (Negative) Patient hx anesthesia problems: none Family hx anesthesia problems: none Results Review: All pre-operative results and documents have been reviewed as part of the pre- operative evaluation. FORMERLY [facility], [facility] Past Medical History Medical History (Updated 04/02/24 @ 11:17 by Abiodun Pacheco DO) Left bundle branch block (LBBB) Breast cancer screening Dog bite of left calf Missed x2 x2 Allergic asthma Eosinophilic esophagitis Anemia Kidney stones Migraines Vaginal delivery x 3 Surgical History Surgical History History of endoscopy History of laparoscopy Family History Family History Father Hypertension Mother Hypertension Social History Social History (Updated 03/01/24 @ 07:15 by Nini Wilkerson) Social History: Smoking status: Former smoker Tobacco type: cigarettes Second hand tobacco smoke exposure: No Smoking end date: 04/18/02 Alcohol intake: current Alcohol use details: Occasionally Substance use: never Substance use type: does not use Do You Feel Safe in your Home?: Yes Lack of Transportation: No Lack of Food: Never True Current Housing: I Have Housing Concerned About Future Housing: No Difficulty Paying Gas/Electric Bills: No Difficulty Paying for Meds: No Currently Unemployed: No Education: Bachelor's Degree Difficulty w/ Childcare or Family Care: No Living arrangements: with family Occupation/Education: occupation Gender identity (if verbalized by the patient): Female Sexual Orientation (if Verbalized by the Patient): Straight or Heterosexual Anes - Eval Final PreProcedure Day of Procedure 04/02/24 11:14 Patient weight: obese Heart: regular rate and rhythm Lungs: clear to auscultation Airway: Mallampati scale class II Neurological: alert and oriented Last oral intake: >/= 8 hours ASA classification: III Emergent: no Anesthetic plan: proceed Anesthesia type and monitoring: general GIVS and standard monitoring Results Review: All pre-operative results and documents have been reviewed as part of the pre- operative evaluation. Informed Consent: The patient's anesthetic plan and its attendant risks and benefits were discussed with the patient/family/POA. Questions were solicited and answers provided to the satisfaction of the patient/family/POA.
--- NOTE | 2024-04-02 11:24 | PM.HPGS ---
History of Present Illness History of Present Illness Consent: Risks, benefits, and alternatives have been discussed and questions answered. Patient agrees to proceed with procedure. Chief complaint: eosinophilic esophagitis, dysphagia, fecal abn Narrative: Cherise Painting is a 49 year old female here for egd and first screening colonoscopy. Diagnosed with EoE 2018 when had EGD but lately without any major issues however she is mindful about eating slow , she says that is not bad to take any medications, few occasions used ppi. Review of Systems Review of Systems: All systems reviewed & are unremarkable except as noted in HPI and below PMFSH Past Medical History Medical History (Updated 04/02/24 @ 11:26 by James Corona MD) Colon cancer screening Left bundle branch block (LBBB) Breast cancer screening Dog bite of left calf Missed x2 x2 Allergic asthma Eosinophilic esophagitis Anemia Kidney stones Migraines Vaginal delivery x 3 Surgical History Surgical History History of endoscopy History of laparoscopy Family History Family History Father Hypertension Mother Hypertension Social History Social History (Updated 03/01/24 @ 07:15 by Nini Wilkerson) Social History: Smoking status: Former smoker Tobacco type: cigarettes Second hand tobacco smoke exposure: No Smoking end date: 04/18/02 Alcohol intake: current Alcohol use details: Occasionally Substance use: never Substance use type: does not use Do You Feel Safe in your Home?: Yes Lack of Transportation: No Lack of Food: Never True Current Housing: I Have Housing Concerned About Future Housing: No Difficulty Paying Gas/Electric Bills: No Difficulty Paying for Meds: No Currently Unemployed: No Education: Bachelor's Degree Difficulty w/ Childcare or Family Care: No Living arrangements: with family Occupation/Education: occupation Gender identity (if verbalized by the patient): Female Sexual Orientation (if Verbalized by the Patient): Straight or Heterosexual Meds Home Medications and Allergies Home Medications ?Medication ?Instructions ?Recorded ?Confirmed ?Type imiquimod 5 % topical cream packet 1 applic topical 3XW 12 weeks #12 10/11/23 04/02/24 Rx ea metoprolol succinate 25 mg See Rx Instructions .Route 09/20/24 12/16/24 Rx tablet,extended release 24 hr .COMPLEX #45 tabs albuterol sulfate 90 mcg/actuation 1 puff inhalation Q4H PRN 01/13/24 03/20/24 Rx aerosol inhaler (Ventolin HFA) shortness of breath or wheezing #8.5 grams budesonide-formoterol HFA 160 1 puff inhalation DAILY #10.2 grams 01/13/24 04/02/24 Rx mcg-4.5 mcg/actuation aerosol inhaler (Symbicort) ergocalciferol (vitamin D2) 1,250 See Rx Instructions .Route 02/27/24 04/02/24 Rx mcg (50,000 unit) capsule .COMPLEX #12 caps phentermine 37.5 mg tablet 37.5 mg PO DAILY #30 tabs 03/01/24 04/02/24 Rx Allergies Allergy/AdvReac Type Severity Reaction Status Date / Time iodine Allergy Anaphylaxis Verified 04/02/24 10:56 Vital Signs Vital Signs - 24 hr 04/02/24 10:58 Temperature 96.0 F L Pulse Rate 76 Respiratory Rate 18 Blood Pressure 115/85 Pulse Oximetry 100 Oxygen Delivery Room Air Exam Const: General: comfortable and no acute distress HENMT: Face/Nose/Sinus: Normal nares present Eyes: General: appearance normal, both eyes and all related structures Neck: Neck: no JVD Resp: Auscultation: clear to auscultation bilaterally Cardio: Rate: regular rate Rhythm: regular rhythm GI: Inspection: non-distended GI Palp: Yes Soft to palpation Skin: General skin exam: normal color Neuro: General: gait normal Speech: normal speech Extrem: General: normal to inspection Psych: Mental Status: mental status grossly normal Assessment and Plan Assessment and plan (1) Eosinophilic esophagitis: Code(s): K20.0 - Eosinophilic esophagitis Status: Acute Assessment and Plan: egd with bx (2) Colon cancer screening: Code(s): Z12.11 - Encounter for screening for malignant neoplasm of colon Status: Acute Assessment and Plan: colonoscopy
--- NOTE | 2024-04-02 11:47 | SUR.OPER ---
EGD: [id number] Colon: [id number]
[2024-04-02 11:52] VITALS: BP 103/60; PULSE 85; RESP 21; O2SAT 100
[2024-04-02 12:02] VITALS: BP 102/63; PULSE 72; RESP 20; O2SAT 99
[2024-04-02 12:12] VITALS: BP 108/64; PULSE 78; RESP 20; O2SAT 99
== END 2024-04-02 12:21 | disposition home or self-care (01) ==
PROVIDERS: Anesthesiology; PCP Family Medicine; Referring Provider Obstetrics & Gynecology; Visit Provider Internal Medicine Gastroenterology
PROC: 0DJ08ZZ Inspection of Upper Intestinal Tract, Via Natural or Artificial Opening Endoscopic (ICD-10-PCS; CPT 43235; principal; 2024-04-02 14:30)
DX: K22.2 Esophageal obstruction (principal); K21.00 Gastro-esophageal reflux disease with esophagitis, without bleeding; K29.50 Unspecified chronic gastritis without bleeding; Z12.11 Encounter for screening for malignant neoplasm of colon; K57.30 Diverticulosis of large intestine without perforation or abscess without bleeding; K64.8 Other hemorrhoids; Z87.891 Personal history of nicotine dependence; Z79.51 Long term (current) use of inhaled steroids
CPT/HCPCS: 43249; 43239; 45378; 88305; C1726; J2003; J2704; J7120

== ENCOUNTER 2025-04-01 09:29 | Outpatient (CLI) | payer BC, SELFPAY ==
--- NOTE | ~2025-04-01 | MM_ITS ---
EXAMINATION: MM screening eric BI w elvira HISTORY: Screening TECHNIQUE: Craniocaudal and mediolateral oblique 3-D tomosynthesis images were obtained and synthetic 2-D images were generated. CAD analysis was submitted and interpreted. COMPARISON: Comparison to multiple prior studies sequentially, with oldest reviewed study dated , 09/23/2015 BREAST PARENCHYMAL COMPOSITION: Not Dense: There are scattered areas of fibroglandular density. FINDINGS: There is no evidence of suspicious mass, calcification, or architectural distortion to suggest malignancy in either breast. IMPRESSION: 1. No mammographic evidence of malignancy. 2. Recommend routine screening mammography in one year. BI-RADS Category 1: Negative Reviewed, dictated and finalized at location A. [employer]
== END 2025-04-01 09:30 | disposition home or self-care (01) ==
LOC: ANHFOHIMG 09:31
PROVIDERS: PCP Family Medicine; Visit Provider Nurse Practitioner Family
DX: Z12.31 Encounter for screening mammogram for malignant neoplasm of breast (principal)
CPT/HCPCS: 77063; 77067

== ENCOUNTER 2025-04-15 15:31 | Outpatient (CLI) | payer BC, SELFPAY ==
--- NOTE | 2025-04-15 | ECG_ITS ---
Test Date: 2025-04-15 16:00:07 Measurements Intervals [place] Rate: 64 P: 13 [place]: 166 QRS: -21 QRSD: 138 T: 46 QT: 438 QTc: 455 Interpretive Statements SINUS RHYTHM LEFT BUNDLE BRANCH BLOCK BASELINE ARTIFACT- V3, V5-V6 ABNORMAL ECG No previous ECG available for comparison Electronically Signed On 04-15-2025 21:18:12 [employer]NA[employer] SORTER by Junior Gregg D.O.
[2025-04-15 17:21] LABS: Alanine Aminotransferase 16 U/L (6-35); Albumin Level 3.9 g/dL (3.5-5.1); Alkaline Phosphatase 80 U/L (38-126); Anion Gap 2 mmol/L (4-12); Aspartate Amino Transferase 28 U/L (14-36); Bilirubin,Total 0.7 mg/dL (0.2-1.3); Blood Urea Nitrogen 14 mg/dL (7-17); Calcium 9.6 mg/dL (8.4-10.2); Carbon Dioxide 34 mmol/L (22-30); Chloride 101 mmol/L (98-107); Estimated Glomerular Filt Rate > 60; Glucose 73 mg/dL (65-110); Potassium 4.1 mmol/L (3.4-5.0); Sodium 137 mmol/L (137-145); Total Protein 6.9 g/dL (6.3-8.2)
== END 2025-04-15 15:32 | disposition home or self-care (01) ==
LOC: ANHLAB 15:34
PROVIDERS: PCP Family Medicine; Visit Provider Podiatrist Foot & Ankle Surgery
DX: Z01.818 Encounter for other preprocedural examination (principal)
CPT/HCPCS: 36415; 80053; 93005